=== PATIENT | female | born 1985 | race African-American/Black ===

== ENCOUNTER 2016-07-17 12:38 | Emergency (ER) | payer SELFPAY ==
[~2016-07-17] VITALS: Ht 167.6 cm; Wt 55.0 kg
[2016-07-17 12:50] VITALS: BP 122/72
== END 2016-07-17 14:27 | disposition home or self-care (01) ==
LOC: ER 13:42
DX: R21 Rash and other nonspecific skin eruption (principal); Z98.890 Other specified postprocedural states
CPT/HCPCS: 99282

== ENCOUNTER 2016-10-06 20:07 | Emergency (ER) | payer MEDICAID ==
[~2016-10-06] VITALS: Ht 167.6 cm; Wt 54.8 kg
[2016-10-06 23:20] VITALS: BP 106/76
== END 2016-10-07 00:20 | disposition home or self-care (01) ==
LOC: ER 20:07
DX: Z76.0 Encounter for issue of repeat prescription (principal); F41.9 Anxiety disorder, unspecified; F32.9 Major depressive disorder, single episode, unspecified; F12.10 Cannabis abuse, uncomplicated
CPT/HCPCS: 99283

== ENCOUNTER 2017-11-10 10:00 | Emergency (ER) | payer MEDICAID ==
[~2017-11-10] VITALS: Ht 162.6 cm; Wt 67.0 kg
[2017-11-10 11:39] LABS: CLARITY URINE CLEAR (CLEAR); COLOR URINE YELLOW (YELLOW); KETONES URINE NEGATIVE (NEGATIVE); LEUKOCYTE ESTERASE URINE NEGATIVE (NEGATIVE); NITRITE URINE NEGATIVE (NEGATIVE); OCCULT BLOOD URINE NEGATIVE (NEGATIVE); PROTEIN URINE NEGATIVE (NEGATIVE); SPECIFIC GRAVITY URINE 1.018 (1.005-1.030)
[2017-11-10] MEDS ORDERED: SODIUM CHLORIDE 0.9% 1,000 ML IV ONE ×2 (12:15→12:30)
[2017-11-10 12:45] LABS: CHLORIDE 105 mEq/L (98-107)
[2017-11-10 12:49] LABS: BASOPHILS % 0.7 % (0.0-2.0); HEMOGLOBIN. 11.8 g/dL (12.0-16.0); LYMPHOCYTES % 41.2 % (20.0-50.0); MEAN CORPUSCULAR HEMOGLOBIN 31.8 pg (28.0-32.0); MEAN CORPUSCULAR VOLUME 94.5 fL (81.0-99.0); MEAN PLATELET VOLUME 7.6 fl (7.4-10.4); MONOCYTES % 6.4 % (2.0-8.0); NEUTROPHILS % 49.7 % (40.0-76.0); PLATELET 239 x1000/uL (130-400); RED CELL DISTRIBUTION WIDTH 12.9 % (11.6-14.6)
[2017-11-10 17:27] VITALS: BP 107/62
== END 2017-11-10 17:05 | disposition home or self-care (01) ==
LOC: ER 10:00
DX: R53.1 Weakness (principal); R55 Syncope and collapse; I95.9 Hypotension, unspecified
CPT/HCPCS: 36415; 80053; 81003; 81025; 85025; 93005; 96360; 99285; J7030

== ENCOUNTER 2018-01-20 10:35 | Emergency (ER) | payer MEDICAID ==
[~2018-01-20] VITALS: Ht 167.6 cm; Wt 54.0 kg
[2018-01-20 10:36] VITALS: BP 128/84
== END 2018-01-20 13:45 | disposition left against medical advice (07) ==
LOC: ER 12:06
DX: Z53.21 Procedure and treatment not carried out due to patient leaving prior to being seen by health care provider (principal)

== ENCOUNTER 2018-05-03 15:39 | Inpatient (IN) | payer MEDICAID ==
[~2018-05-03] VITALS: Ht 167.6 cm; Wt 56.7 kg
[2018-05-03] MEDS ORDERED: DIPHENHYDRAMINE 50MG/ML VIAL IM STA (16:11)
[2018-05-03] MEDS ORDERED: METHYLPREDNISOLONE SOD SUCC 125 MG/2 ML VIAL IM ONE (16:15)
[2018-05-03] MEDS ORDERED: SODIUM CHLORIDE 0.9% 1,000 ML IV ONE (16:54)
[2018-05-03] MEDS ORDERED: FAMOTIDINE 20MG/2ML VIAL IV ONE (17:00)
[2018-05-03] MEDS ORDERED: DIPHENHYDRAMINE 50MG/ML VIAL IV ONE (17:00)
[2018-05-03] MEDS ORDERED: METHYLPREDNISOLONE SOD SUCC 125 MG/2 ML VIAL IV ONE (17:00)
[2018-05-03] MEDS ORDERED: EPINEPHRINE 1:1000 1 MG/ML AMP INJ ONE (17:15)
[2018-05-03 17:53] LABS: BASOPHILS % 0.3 % (0.0-2.0); HEMATOCRIT. 34.3 % (36.0-48.0); HEMOGLOBIN. 11.7 g/dL (12.0-16.0); LYMPHOCYTES % 14.9 % (20.0-50.0); MEAN CORPUSCULAR HEMOGLOBIN 32.8 pg (28.0-32.0); MEAN PLATELET VOLUME 7.3 fl (7.4-10.4); MONOCYTES % 4.1 % (2.0-8.0); NEUTROPHILS % 79.7 % (40.0-76.0); PLATELET 210 x1000/uL (130-400); RED BLOOD CELL COUNT 3.57 mill/uL (4.2-5.4); RED CELL DISTRIBUTION WIDTH 13.4 % (11.6-14.6)
[2018-05-03 18:00] LABS: CHLORIDE 105 mEq/L (98-107)
[2018-05-03 18:01] LABS: PARTIAL THROMBOPLASTIN TIME 27.3 sec (23.4-31.0); PROTHROMBIN TIME 9.6 sec (9.1-11.1)
[2018-05-03 18:04] LABS: HCG SCREEN POSITIVE
[2018-05-03] MEDS ORDERED: ONDANSETRON HCL 4MG/2ML INJ IV PRN (19:45)
[2018-05-03] MEDS ORDERED: CLONIDINE 0.1MG TABLET PO PRN (19:45)
[2018-05-03] MEDS ORDERED: POTASSIUM CHLORIDE 20MEQ TABLET SR PO SCH (19:45)
[2018-05-03] MEDS ORDERED: HYDROMORPHONE HCL/PF 2MG/ML CPJ IV PRN (19:45)
[2018-05-03] MEDS ORDERED: ACETAMINOPHEN 325MG TABLET PO PRN (19:45)
[2018-05-03] MEDS ORDERED: LORAZEPAM 2MG/ML CPJ IV PRN (19:45)
[2018-05-03] MEDS ORDERED: NA PHOS,M-B/NA PHOS,DI-BA ENEMA 118ML PR PRN (19:45)
[2018-05-03] MEDS ORDERED: HYDROCODONE/APAP 7.5/325MG 1 TAB TABLET PO PRN (19:45)
[2018-05-03] MEDS ORDERED: DIPHENHYDRAMINE 50MG/ML VIAL IV PRN (19:45)
[2018-05-03] MEDS ORDERED: MAGNESIUM/ALUMINUM HYDROXIDE/SIMETHICONE 30ML UDC PO PRN (19:45)
[2018-05-03] MEDS ORDERED: GUAIFENESIN 200MG/10ML SUGAR FREE UDC PO PRN (19:45)
[2018-05-03] MEDS ORDERED: HYDRALAZINE 20MG/ML VIAL IV PRN (19:45)
[2018-05-03] MEDS ORDERED: DOCUSATE SODIUM 100MG CAPSULE PO PRN (19:45)
[2018-05-03 22:35] VITALS: BP 97/52
[2018-05-03 22:40] VITALS: BP 97/52
[2018-05-03] MEDS: METHYLPREDNISOLONE SOD SUCC 125 MG/2 ML VIAL IV SCH (23:29)
[2018-05-03] MEDS: SODIUM CHLORIDE 0.45% 1,000 ML IV SCH (23:30)
[2018-05-03 23:49] LABS: CREATINE KINASE 314 IU/L (26-192)
[2018-05-03 23:50] LABS: CREATINE KINASE MB FRACTION 2.3 ng/mL (0.5-3.6)
[2018-05-04] VITALS: BP 111/59
[2018-05-04 04:00] VITALS: BP 99/55
[2018-05-04] MEDS: METHYLPREDNISOLONE SOD SUCC 125 MG/2 ML VIAL IV SCH ×2 (06:29→12:21)
[2018-05-04 07:16] LABS: CHLORIDE 107 mEq/L (98-107)
[2018-05-04 07:30] LABS: HEMATOCRIT. 33.8 % (36.0-48.0); HEMOGLOBIN. 11.4 g/dL (12.0-16.0); MEAN CORPUSCULAR HEMOGLOBIN 32.3 pg (28.0-32.0); MEAN CORPUSCULAR VOLUME 96.1 fL (81.0-99.0); MEAN PLATELET VOLUME 7.8 fl (7.4-10.4); PLATELET 234 x1000/uL (130-400); RED BLOOD CELL COUNT 3.52 mill/uL (4.2-5.4); RED CELL DISTRIBUTION WIDTH 13.2 % (11.6-14.6)
[2018-05-04 07:36] LABS: CREATINE KINASE 347 IU/L (26-192)
[2018-05-04 07:39] LABS: CREATINE KINASE MB FRACTION 2.1 ng/mL (0.5-3.6)
[2018-05-04] MEDS: SODIUM CHLORIDE 0.45% 1,000 ML IV SCH (10:20)
[2018-05-04 11:35] LABS: PLATELET ESTIMATE NORMAL
[2018-05-04 12:00] VITALS: BP 104/52
[2018-05-04 13:08] VITALS: BP 128/72
== END 2018-05-04 15:37 | disposition home or self-care (01) | DRG 566 ==
LOC: ER 15:39 → 6WST 17:17 → EDBEDREQ 17:21 → EDBEDREQTM 17:21 → ENRESERV 19:40
PROVIDERS: ADMIT Internal Medicine; ATTEND Internal Medicine
DX: O26.899 Other specified pregnancy related conditions, unspecified trimester (principal); E83.51 Hypocalcemia; E87.6 Hypokalemia; O99.280 Endocrine, nutritional and metabolic diseases complicating pregnancy, unspecified trimester; X58.XXXA Exposure to other specified factors, initial encounter; Z98.891 History of uterine scar from previous surgery; T78.1XXA Other adverse food reactions, not elsewhere classified, initial encounter
CPT/HCPCS: 36415; 80048; 82550; 82553; 84443; 84484; 84702; 84703; 93005; 96372; 96374; 96375; 99291; J1200; J2930; J3490; J7030

== ENCOUNTER 2021-11-26 09:21 | Emergency (ER) | payer MEDICAID ==
[~2021-11-26] VITALS: Ht 167.6 cm; Wt 78.0 kg
[2021-11-26 09:30] VITALS: BP 132/71
[2021-11-26 12:44] LABS: BASOPHILS % 0.6 % (0.0-2.0); EOSINOPHILS % 3.8 % (0.0-5.0); HEMATOCRIT. 40.5 % (36.0-48.0); HEMOGLOBIN. 13.7 g/dL (12.0-16.0); MEAN CORPUSCULAR HEMOGLOBIN 31.4 pg (28.0-32.0); MEAN CORPUSCULAR VOLUME 92.8 fL (81.0-99.0); MEAN PLATELET VOLUME 7.6 fl (7.4-10.4); MONOCYTES % 6.9 % (2.0-8.0); NEUTROPHILS % 54.7 % (40.0-76.0); PLATELET 244 x1000/uL (130-400); RED BLOOD CELL COUNT 4.37 mill/uL (4.2-5.4); RED CELL DISTRIBUTION WIDTH 13.3 % (11.6-14.6)
[2021-11-26 12:54] LABS: CHLORIDE 105 mEq/L (98-107)
[2021-11-26 13:00] LABS: *AMPHETAMINES SCREEN URINE NEGATIVE (NEGATIVE); *BARBITURATES SCREEN URINE NEGATIVE (NEGATIVE); *BENZODIAZEPINES SCREEN URINE NEGATIVE (NEGATIVE); *COCAINE SCREEN URINE NEGATIVE (NEGATIVE); METHADONE URINE SCREEN NEGATIVE (NEGATIVE); OPIATES URINE SCREEN NEGATIVE (NEGATIVE); PHENCYCLIDINE URINE SCREEN NEGATIVE (NEGATIVE)
[2021-11-26 13:03] LABS: CANNABINOID URINE SCREEN PRESUMTIVE POSITIVE (NEGATIVE)
[2021-11-26] MEDS ORDERED: POTA-205 PO (13:37)
[2021-11-26] MEDS ORDERED: NAPR-681 PO (13:37)
== END 2021-11-26 13:56 | disposition home or self-care (01) ==
LOC: ER 09:21
DX: M79.672 Pain in left foot (principal); M79.671 Pain in right foot; R00.2 Palpitations; E87.6 Hypokalemia; F12.90 Cannabis use, unspecified, uncomplicated
CPT/HCPCS: 36415; 80053; 80305; 85025; 93005; 99284